=== PATIENT | male | born 1975 | race Caucasian/White ===

== ENCOUNTER → 2016-05-03 | Outpatient (CLI) | payer BC ==
[~2016-05-03] MED LIST: OXYC-57 PO
--- NOTE | 2016-05-03 14:52 | DIAGNOSTIC IMAGING REPORT ---
ULTRASOUND KIDNEYS AND BLADDER CLINICAL HISTORY: Urinary frequency. COMPARISON STUDY: No priors. TECHNIQUE: Real-time, grayscale, and color flow sonography of the kidneys and bladder is performed. Images are reviewed in the transverse and longitudinal planes. FINDINGS: Kidneys: The kidneys are normal in size and echotexture. The right kidney measures 12.3 x 5.5 I 7.2 cm and the left kidney measures 12.5 x 5.4 x 5.8 cm. There is no hydronephrosis. No shadowing renal calculi are identified. Small bilateral renal cysts measure up to 2.4 cm. There is no sonographic evidence of solid mass lesion. No perinephric fluid is identified. Bladder: The bladder is normal in appearance. Bilateral ureteral jets were seen. The post void residual volume measures 20 cc. Upper abdomen: The spleen is enlarged measuring 16.0 cm in length. IMPRESSION: 1. The kidneys are normal in size and without hydronephrosis. 2. Bilateral renal cysts measure up to 2.4 cm. 3. Splenomegaly. 4. The bladder is normal as visualized. The postvoid residual volume measures 20 cc. Electronically signed by: Cirilo Cano M.D. 05/03/2016 2:51 PM Dictated Date/Time: 05/03/2016 2:49 PM
== END | disposition home or self-care (01) ==
LOC: C.ULTR 13:54
PROVIDERS: ATTEND Family Medicine
DX: R35.0 Frequency of micturition (principal)

== ENCOUNTER → 2016-06-15 | Day surgery (SDC) | payer BC ==
[2016-06-01 14:56] VITALS: Ht 180.3 cm; Wt 98.2 kg
[~2016-06-15] VITALS: Ht 180.3 cm; Wt 98.2 kg
[~2016-06-15] MED LIST changes: +ATROPINE SULFATE 0.1 MG/ML 5ML SYR IV PRN; +BACITRACIN 50000 UNIT VIAL ONE; +BUPIVACAINE 0.5 % 5 MG/1 ML MPF 30ML VIAL ONE; +CEFAZOLIN SOD 1 GM VIAL ONE; +DEXAMETHASONE SOD INJ 4 MG/ML VIAL ONE; +EpHEDrine SULFATE INJ 50 MG/ML AMP IV PRN; +FENTANYL CITRATE INJ 50 MCG/1 ML 2 ML VIAL IV PRN; +FENTANYL CITRATE INJ 50 MCG/1 ML 2 ML VIAL ONE; +LACTATED RINGER'S 1000ML 1,000 ML IV SCH; +LIDOCAINE HCL 2% 2 ML VIAL (20MG/ML) ONE; +MIDAZOLAM HCL 1 MG/ML 2ML VIAL ONE; +MoRPHine SULFATE 2 MG/ML CARP IV PRN; +ONDANSETRON INJ 2 MG/ML 2 ML VIAL IV PRN; +ONDANSETRON INJ 2 MG/ML 2 ML VIAL ONE; +OXYCODONE/ACETAMINOPHEN 5-325 TAB PO PRN; +PROPOFOL IV EMULSION 10 MG/ML 20 ML VIAL IV ONE; +SODIUM CHLORIDE 0.9% INJ 10 ML VIAL ONE
--- NOTE | 2016-06-15 06:37 | History and Physical: Surg Cnt ---
History & Physical Date Jun 15, 2016. History of Present Illness The patient is a 41 year old male with complaints ofenalarging symp right ing hernia Additional History Hepatic Disease: No Endocrine Disorder: No Kidney Disease: No Hypertension: No Heart Disease: No Bleeding Tendencies: No Infectious Diseases: No Other: worked up past myeloproliferative disease Allergies Coded Allergies: NO KNOWN DRUG ALLERGIES (Verified Allergy, Unknown, ., 06/15/16) Home Medications No Active Prescriptions or Reported Meds Physical Examination Skin: warm/dry, no rash Eyes: normal inspection, EOMI, sclerae normal ENT: normal ENT inspection, pharynx normal Head: normocephalic, atraumatic Neck: supple, no adenopathy, trachea midline Respiratory/Chest: lungs clear, normal breath sounds, no respiratory distress Cardiovascular: regular rate, rhythm, no edema, no murmur Abdomen / GI: normal bowel sounds, non tender Back: normal inspection Extremities: normal inspection, normal range of motion Genitourinary - Male: normal male genitalia (golf ball size reducible right ing hernia), normal testicles Neurologic/Psych: no motor/sensory deficits, alert, normal reflexes, oriented x 3 Diagnosis symp reducible right ing hernia Plan of Treatment symp right ing hernia open repair with possible mesh r and c explained to pt pt marked SO at bedside
--- NOTE | 2016-06-15 07:06 | Discharge Instructions ---
Discharge Instructions Date of Service Jun 15, 2016. Visit Reason for Visit: Right Inguinal Hernia Discharge Discharge Diagnosis / Problem: Ingunial hernia repair Discharge Goals Goal(s): Decrease discomfort Activity Recommendations Activity Limitations: as noted below Lifting Limitations: no more than 10 pounds Shower/Bathe: tomorrow Driving or Machine Use: in 5-7 days if not taking Percocet Anesthesia . Post Anesthesia Instructions: If you have had General Anesthesia or IV Sedation: * Do not drive today. * Resume driving when surgeon permits. * Do not make important decisions or sign legal documents today. * Call surgeon for: 1. Temperature elevations greater than 101 degrees F. 2. Uncontrollable pain. 3. Excessive bleeding. 4. Persistent nausea and vomiting. 5. Medication intolerance (nausea, vomiting or rash). * For nausea and vomiting use only clear liquids such as: tea, soda, bouillon until nausea subsides, then gradually increase diet as tolerated. * If you have any concerns or questions, call your surgeon's office. If physician is unavailable and it is an emergency, call 911 or go to the nearest emergency room. . Instructions / Follow-Up Instructions / Follow-Up Dr. Mccurdy in 1 week, call [phone] if you do not already have an appt Ice groin (incision) off and on alternating every 20 minutes until bedtime Diet Recommendations Recommended Home Diet: no limitations Pending Studies Studies pending at discharge: no Medical Emergencies . Who to Call and When: Medical Emergencies: If at any time you feel your situation is an emergency, please call 911 immediately. . Non-Emergent Contact Non-Emergency issues call your: Surgeon Call Non-Emergent contact if: you have a fever, temperature is above 101.5, your pain is not controlled, wound has increased redness . . "Provider Documentation" section prepared by Jeyson Foote.
--- NOTE | 2016-06-15 08:13 | [facility] Post Operative Brief Note ---
Immediate Operative Summary Operative Date Jun 15, 2016. Pre-Operative Diagnosis Right Inguinal Hernia Post-Operative Diagnosis Direct and Indirect Right Inguinal Hernia, Lipoma of Cord Procedure(s) Performed Right Inguinal Open Hernia Repair With Mesh and excision lipoma cord Surgeon Dr. Mccurdy Chemical Processing Supervisor Surgeon(s) Florencia Foote PA-C Estimated Blood Loss 3 mL Specimens A. Lipoma of Cord
--- NOTE | 2016-06-15 08:25 | Anesthesia Progress Nt - [facility] ---
Anesthesia Post Op Note Date & Time Jun 15, 2016 at 08:25 Vital Signs Pain Intensity: 0 Vital Signs Past 12 Hours Date Time Temp Pulse Resp B/P Pulse Ox O2 Delivery O2 Flow Rate FiO2 06/15/16 06:39 36.5 52 16 140/78 96 Room Air Notes Mental Status: alert / awake / arousable, participated in evaluation Pt Amnestic to Procedure: Yes Nausea / Vomiting: adequately controlled Pain: adequately controlled Airway Patency, RR, SpO2: stable & adequate BP & HR: stable & adequate Hydration State: stable & adequate Anesthetic Complications: no major complications apparent
--- NOTE | 2016-06-15 08:31 | Medical Student: [facility] ---
Immediate Operative Summary Operative Date Jun 15, 2016. Pre-Operative Diagnosis Right inguinal hernia Post-Operative Diagnosis Right direct and indirect inguinal hernias and cord lipoma Procedure(s) Performed Open repair of right inguinal hernia with mesh and cord lipoma excision Surgeon Dr. Martin Mccurdy Washer And Capper Machine Operator Surgeon(s) Jeyson Foote PA-C Estimated Blood Loss 3 cc Findings Direct and indirect inguinal hernias and cord lipoma Fluids (cc crystalloids) 1200 cc Specimens 1. Cord lipoma Drains None Anesthesia GETA Complication(s) None Disposition Recovery Room / PACU (In stable condition)
--- NOTE | 2016-06-15 08:35 | OPERATIVE REPORT ---
DATE OF OPERATION: 06/15/2016 PREOPERATIVE DIAGNOSIS: Symptomatic right inguinal hernia. POSTOPERATIVE DIAGNOSIS: Right direct and indirect (pantaloon hernia and lipoma of the cord). PROCEDURE: Open repair of right inguinal hernia with Marlex mesh reinforcement tension free and excision lipoma of the cord. SURGEON: Dr. Mccurdy. REGIONAL OFFICE COORDINATOR: Geo Foote PA-C. OPERATION AND FINDINGS: SUMMARY: The patient was brought into the operating room under LMA anesthesia. Right lower quadrant was prepped with Betadine scrubbing solution and properly draped. Systemic antibiotics had been given. Time out was had. Marcaine 0.5% without epinephrine used preemptive local analgesia 2 fingerbreadths medial and anterior superior iliac crest to inject underneath the external oblique. An incision was made parallel to the inguinal ligament and deepened through subcutaneous tissue onto the external oblique. The external oblique was then opened along the course of its fibers to the external ring. Some subcutaneous vessels were ligated with 2-0 silk. Once we were able then to the external ring there was some incarcerated tissue, we elevated the tissue on the Brandon drain and identified that the patient has significant direct weakness. We dissected some cremasteric fibers to further delineate the extent of it and actually identified that the inferior epigastric vessels were pulled over down. We ligated the vein out of the way and identified that this was a pantaloon hernia. The patient also had a large lipoma of the cord that we freed from the cord structures, ligating at its base with 2-0 silk resecting it. We used 3-0 silk suture interrupted to approximate the free fibers of the transversalis fascia to return the prominence of the direct hernia into the retroperitoneal area. The whole floor was pretty much a hernia extending into the canal, probably about 6-8 cm or more. We also reconstructed the internal ring, avoiding the nerve which we had placed underneath the hemostat superiorly. A sheet of Marlex mesh was then brought onto the field and sutured onto the symphysis pubis, shelving portion of the inguinal ligament, around the internal ring to reconstruct it could only accommodate the tip of a hemostat. The nerve had been placed along the cord and was free of any entrapment. The internal ring could only accommodate the tip of a hemostat. The mesh was well beyond the internal ring, probably about 2-3 cm. It was subfascially to the external oblique. We then closed the external oblique on top of the mesh and the cord with interrupted 3-0 silk suture, 3-0 Dexon was used subcutaneously after more local anesthetic was used along the conjoined tendon superiorly and also in bed of the operative field 3-0 Dexon subcutaneously, kris for skin edges. Dressing was applied. The procedure was tolerated well by the patient. Estimated blood loss approximately 3 mL. The patient was taken to recovery room in good condition. I attest to the content of the Intraoperative Record and any orders documented therein. Any exceptio ns are noted below.
[2016-06-15 09:01] VITALS: BP 122/82; PULSE 56; TEMP 36.3; O2SAT 94
== END | disposition home or self-care (01) ==
LOC: X.SURG 06:09
PROVIDERS: ATTEND Surgery
DX: K40.90 Unilateral inguinal hernia, without obstruction or gangrene, not specified as recurrent (principal); D17.6 Benign lipomatous neoplasm of spermatic cord

== ENCOUNTER → 2016-08-29 | Outpatient (CLI) | payer BC ==
[~2016-08-29] MED LIST changes: -ATROPINE SULFATE 0.1 MG/ML 5ML SYR IV PRN; -BACITRACIN 50000 UNIT VIAL ONE; -BUPIVACAINE 0.5 % 5 MG/1 ML MPF 30ML VIAL ONE; -CEFAZOLIN SOD 1 GM VIAL ONE; -DEXAMETHASONE SOD INJ 4 MG/ML VIAL ONE; -EpHEDrine SULFATE INJ 50 MG/ML AMP IV PRN; -FENTANYL CITRATE INJ 50 MCG/1 ML 2 ML VIAL IV PRN; -FENTANYL CITRATE INJ 50 MCG/1 ML 2 ML VIAL ONE; -LACTATED RINGER'S 1000ML 1,000 ML IV SCH; -LIDOCAINE HCL 2% 2 ML VIAL (20MG/ML) ONE; -MIDAZOLAM HCL 1 MG/ML 2ML VIAL ONE; -MoRPHine SULFATE 2 MG/ML CARP IV PRN; -ONDANSETRON INJ 2 MG/ML 2 ML VIAL IV PRN; -ONDANSETRON INJ 2 MG/ML 2 ML VIAL ONE; -OXYCODONE/ACETAMINOPHEN 5-325 TAB PO PRN; -PROPOFOL IV EMULSION 10 MG/ML 20 ML VIAL IV ONE; -SODIUM CHLORIDE 0.9% INJ 10 ML VIAL ONE
== END | disposition home or self-care (01) ==
LOC: C.PATHSPEC 17:20
PROVIDERS: ATTEND Urology
DX: Z30.2 Encounter for sterilization (principal)

== ENCOUNTER 2017-03-05 06:44 | Emergency (ER) | payer BC ==
[~2017-03-05] VITALS: Ht 180.3 cm; Wt 98.0 kg
[2017-03-05 06:48] VITALS: BP 140/97; TEMP 36.5; Ht 180.3 cm; Wt 98.0 kg
[2017-03-05] MEDS ORDERED: IBUPROFEN 600 MG TAB PO STA (06:55)
--- NOTE | 2017-03-05 07:56 | DIAGNOSTIC IMAGING REPORT ---
R ANKLE MIN 3 VIEWS ROUTINE HISTORY: 42 years-old Male fall/ ankle pain acute right ankle pain status post fall COMPARISON: None available TECHNIQUE: 3 views of the right ankle FINDINGS: There is marked anterolateral soft tissue swelling about the ankle. Ankle joint effusion is suspected. Corticated bone fragments are seen inferior to the medial malleolus measuring up to 4 mm suggesting remote fracture fragments or accessory ossicles. There is no acute fracture, dislocation or osteochondral defect. There are only minimal degenerative changes about the midfoot. No opaque foreign body. IMPRESSION: 1. Marked anterolateral soft tissue swelling about the ankle without acute fracture or dislocation identified. 2. Subcentimeter corticated bone fragments adjacent to the medial malleolus suggests remote fracture fragments and/or accessory ossicles. The above report was generated using voice recognition software. It may contain grammatical, syntax or spelling errors. Electronically signed by: Manjit Kay M.D. 03/05/2017 7:54 AM Dictated Date/Time: 03/05/2017 7:52 AM
--- NOTE | 2017-03-05 08:07 | EMERGENCY ROOM VISIT NOTE ---
ED Visit Note First contact with patient: 06:51 CHIEF COMPLAINT: Right Ankle injury HISTORY OF PRESENT ILLNESS: This 42-year-old male presents the ER with chief complaint of right ankle pain and swelling and left hand abrasions. The patient states that he was walking to work this morning and tripped on the curb and fell injuring his right ankle and left hand. The patient states that he walked an additional 2 miles after the injury occurred. He states it was very painful. The patient denies any numbness and tingling in his toes. The patient denies any knee or hip pain. The patient denies any prior fracture to his right ankle. The patient also states that he has multiple abrasions on his left hand but denies any difficulty moving his fingers or wrist. REVIEW OF SYSTEMS: 6 system review was performed and was negative unless stated otherwise in history of present illness. PMH: No prior significant ankle injury. Hernia repair SOCIAL HISTORY: Patient is a [employer] professor. The patient denies tobacco use but admits to occasional alcohol use. PHYSICAL EXAM: Vital Signs: Were reviewed Reviewed Nurse's notes. GENERAL: 42- year-old male appears in no acute distress. MENTAL STATUS: Alert, oriented, and cooperative. RIGHT ANKLE: The ankle is swollen and tender over the lateral aspect but the skin is intact and there is no ligamentous instability. The patient also has tenderness palpation over both the medial and lateral aspect of the ankle. There is no gross bony deformity. The foot and toes are warm and well-perfused. Sensation to pain and light touch is intact. LEFT HAND: No gross bony deformity noted. Superficial abrasions noted over the dorsal aspect of the hand. Patient is able to move her fingers without difficulty. Full range of motion of the ankle. EMERGENCY DEPARTMENT COURSE: The patient was evaluated. The patient was given Motrin 600 mg by mouth for pain. He was offered something stronger but declined. X-ray of the right ankle was ordered and interpreted by the radiologist and myself. DIAGNOSTICS:R ANKLE MIN 3 VIEWS ROUTINE HISTORY: 42 years-old Male fall/ ankle pain acute right ankle pain status post fall COMPARISON: None available TECHNIQUE: 3 views of the right ankle FINDINGS: There is marked anterolateral soft tissue swelling about the ankle. Ankle joint effusion is suspected. Corticated bone fragments are seen inferior to the medial malleolus measuring up to 4 mm suggesting remote fracture fragments or accessory ossicles. There is no acute fracture, dislocation or osteochondral defect. There are only minimal degenerative changes about the midfoot. No opaque foreign body. IMPRESSION: 1. Marked anterolateral soft tissue swelling about the ankle without acute fracture or dislocation identified. 2. Subcentimeter corticated bone fragments adjacent to the medial malleolus suggests remote fracture fragments and/or accessory ossicles. The above report was generated using voice recognition software. It may contain grammatical, syntax or spelling errors. Electronically signed by: Manjit Kay M.D. 03/05/2017 7:54 AM Dictated Date/Time: 03/05/2017 7:52 AM The patient was informed of the findings. The patient was placed in a gel splint and crutches. DIAGNOSIS: Sprained right Ankle with possible fracture fragments. DISCHARGE INSTRUCTIONS: Ice and elevation over the next 24 hours. Ibuprofen, 600 mg every 6 hours if needed for pain. Use crutches and wear gel splint until evaluated by orthopedics. Call Dr. Dawkins today for follow-up appointment. Current/Historical Medications No Active Prescriptions or Reported Meds Allergies Coded Allergies: NO KNOWN DRUG ALLERGIES (Verified Allergy, Unknown, ., 03/05/17) Vital Signs Date Time Temp Pulse Resp B/P (MAP) Pulse Ox O2 Delivery O2 Flow Rate FiO2 03/05/17 06:48 36.5 65 18 140/97 96 Room Air Medications Administered Medications (Trade) Dose Ordered Sig/Marquez Route Start Time Stop Time Status Last Admin Dose Admin Ibuprofen (Motrin Tab) 600 mg NOW STAT PO 03/05/17 06:55 03/05/17 06:56 DC 03/05/17 07:13 600 MG Departure Information Prescriptions No Active Prescriptions or Reported Meds Referrals Nkechi To MD (PCP) Patient Instructions My [facility]
[2017-03-05 08:29] VITALS: PULSE 65; O2SAT 96
== END 2017-03-05 08:30 | disposition home or self-care (01) ==
LOC: C.EDB 06:45
DX: S93.401A Sprain of unspecified ligament of right ankle, initial encounter (principal); W01.0XXA Fall on same level from slipping, tripping and stumbling without subsequent striking against object, initial encounter; S60.512A Abrasion of left hand, initial encounter

== ENCOUNTER → 2017-05-20 | Outpatient (CLI) | payer OTHER ==
--- NOTE | 2017-05-21 05:47 | PAP/PSG TECHNICIAN REPORT ---
[facility] Therapeutic Recreation Assistant Polysomnogram Report Study name: None Report date: 05/21/2017 Study date: 05/20/2017 Referring Physician: Dr. Liu Name: JOSESITO PALOMINO Interpreting Physician: Adiel Orourke M.D. Date of : 1975 Therapeutic Recreation Assistant: Bradford Lopez RPSGT. Sex: Male Age: 42 StudyType: PSG Weight: 220 lbs Height: 42 years, Height 5' 11" BMI: 30.68 Medications: NONE LISTED Patient History HE HAS HISTORY OF SNORING AND DAYTIME SLEEPINESS. ALSO HAS HISTORY OF POLYCYTHEMIA. HE IS HERE TODAY FOR AN EVALUATION FOR JAY. ESS = 8 RM 5 Parameters Monitored NPSG: E1-M2, E2-M1, Fp1-M2, Fp2-M1, F3-M2, F4-M2, F4-M1, C3-M2, C4-M2, C4-M1, O1-M2, O2-M2, O2-M1, T3-M2, T4-M1, P3-M2, P4-M1, CHIN1, CHIN2, HR, EKG, Legs, PFLOW, SNOR, FLOW, CFLOW, Tidal Volume, THOR, ABDO, SpO2, PLTH, CPRESS, ETCO2 Wave, ETCO2, pH Sleep Architecture Sleep Stages Time at Lights Off 9:43:29 PM STAGES Time (min.) TST (%) Time at Lights On 5:25:29 AM Wake 103.5 -- Total Recording Time (TRT) 462.50 min. N1 9.0 3 Total Sleep Period (TSP) 445.0 min. N2 233.0 65 Total Sleep Time (TST) 358.5min. N3 71.0 20 Awake Time 103.5 min. REM 45.5 13 Wake after Sleep Onset 86.5 min. Sleep Efficiency (SE) 78 % Sleep Onset Latency (TIMA) 17.0 min. Number of Stage 1 Shifts None Awakenings 12 Stage Changes 55 Number of REM periods 8 REM 45.5 13 REM Latency 139.5 min. NREM 313.0 87 Body Position Analysis Supine Right Left Side Prone Vertical Total Sleep Time (min.) 58.2 100.2 217.0 317.24 0.0 0.0 Total Sleep Time (%) 12% 28% 61% 88 0% N/A% Total Sleep Time REM (min.) 5.0 11.5 29.0 None 0.0 0.0 Total Sleep Time NREM (min.) 36.3 88.7 188.0 None 0.0 0.0 Intermittent Wake (min.) 17.0 9.4 77.1 None 0.0 0.0 Total Sleep Period (%) 10% None None None None None Arousals Myoclonus (PLM) * Events Count Index Events Count Index Spontaneous 27 5 Events Awake (PLMW) 167 96.8 Respiratory 0 0.0 Events Asleep w/ Arousal (PLMA) 15 2.5 PLM 14 3 Events Asleep w/o Arousal (PLMS) 204 34.1 Snoring 1 0 Total Asleep 219 36.7 Total 42 7 Total 386 50 Respiratory Analysis * CA OA MA CH H RERA Total Count 0 0 0 0 8 0 8 Index 0.0 0.0 0.0 0 1.3 0 1.3 Mean Duration 0.0 0.0 0.0 0.00 17.4 0.0 17.4 Longest Duration 0.0 0.0 0.0 0.00 0.0 0.0 21.5 Respiratory Event Summary Total Supine ~Supine Right Left Prone REM NREM Apneas Count 0 0 0 0 0 N/A 0 0 Index 0.0 0 0 0.0 0.0 N/A 0 0 Hypopneas (4% Desat) Count 8 5 3 0 3 N/A 3 5 Index 1.3 7.3 1 0.0 0.8 N/A 4.0 1.0 Apneas & All Hypopneas Count 8 5 3 0 3 N/A 3 5 Index 1.3 7 1 0 1 N/A 4.0 1.0 Respiratory Events ([employer]+All Hyp+RERA) Count 8 5 3 0 3 N/A 3 5 Index 1.3 7 1 0.0 0.8 N/A 4.0 1.0 Respiratory Related Arousal Count 0 5 0 0 0 N/A 0 0 Index 0.0 0 0 0 0 N/A 0 0 Snoring Analysis Supine Right Left Prone REM NREM Total Snore duration 2.5 min Snores count 23 46 63 N/A 7 125 132 Snore mean duration 1.1 Sec Snores index 33 28 17 N/A 9.2 24.0 22.1 TST with snoring (%) 0.7% Desaturation Event Summary: Minimum %SpO2 Event Count Mean/Min/Max Duration(sec.) Desaturation Index % Time In Bed > 90 17 26.0 / 7.8 / 54.5 3.7 60.1 86 - 90 3 13.0 / 7.8 / 18.0 1.0 39.9 81 - 85 0 N/A 0.0 0.0 76 - 80 0 N/A 0.0 0.0 71 - 75 0 N/A 0.0 0.0 66 - 70 0 N/A 0.0 0.0 61 - 65 0 N/A 0.0 0.0 56 - 60 0 N/A 0.0 0.0 51 - 55 0 N/A 0.0 0.0 < 50 0 N/A 0.0 0.0 Total REM NREM Awake <50% 0.0 min. 0.0 min. 0.0 min. 0.0 min. 51 - 60% 0.0 min. 0.0 min. 0.0 min. 0.0 min. 61 - 70% 0.0 min. 0.0 min. 0.0 min. 0.0 min. 71 - 80% 0.0 min. 0.0 min. 0.0 min. 0.0 min. 81 - 90% 182.2 min. 17.5 min. 138.9 min. 25.9 min. 91 - 100% 274.9 min. 28.0 min. 174.0 min. 72.9 min. Average 91 91 91 91 Minimum SpO2 86 86 88 87 Desaturation Event Index 2.2 4.0 1.0 5.2 # Desat. Events below 89% 9 2 3 4 Time(%) with Saturation below 89% 2.0 0.9 0.8 0.2 Time(min.) with Saturation below 89% 9.0 4.2 3.7 1.1 Time (mins) REM (mins) NREM (mins) % of TST SpO2 Below 90% 8 3 N5 17.8 SpO2 Below 88% 2 0 0 0 Heart Rate Analysis Min (bpm) Max (bpm) Average (bpm) Awake 48 84 57 NREM 43 93 53 REM 44 127 52 Overall 43 127 53 Supplemental O2 Values Minimum O2 level: None Value Start Time End Time Therapeutic Recreation Assistant Comments Mr. Palomino slept in the right, left and supine positions. PVC's noted. Leg movements noted. No bruxism noted. Snoring was noted and scored as a 2 on a scale of 1 through 5. (0=no snoring, 5=snoring loud enough to be heard through a closed door or down the madrigal way) Mr. Palomino awoke to use the restroom 1 time during the night. Mr. Palomino stated I slept as well as I do when I am in my own bed. The final report will be interpreted and signed by a sleep physician. The completed physician report will then be placed in the patient medical record. Therapy (cm H2O) 0 TIB (min.) 462.0 TST (min.) 358.5 Sleep Onset (min.) 17.0 REM Onset From Sleep (min.) 139.5 Sleep Efficiency % 78 Wakefulness (%) 22 Wakefulness (min.) 103.5 NREM 1 (%) 3 NREM 1 (min.) 9.0 NREM 2 (%) 65 NREM 2 (min.) 233.0 NREM 3 (%) 20 NREM 3 (min.) 71.0 REM (%) 13 REM (min.) 45.5 # Arousals 42 Arousal Index 7 # Snore 132 Snore Index 22.1 AHI 1.3 AHI Supine 7 AHI Non-Supine 1 NREM AHI 1.0 REM AHI 4.0 RDI 1.3 # Obstructive Apnea 0 # Central Apnea 0 # Mixed Apnea 0 # Hypopneas 8 RERAs 0 Total Respiratory Events 10 Time Below SpO2 89% (min.) 7.9 Mean NREM SpO2 (%) 91 Mean REM SpO2 (%) 91 Mean Sleep SpO2 (%) 91 Min NREM SpO2 (%) 88 Min REM SpO2 (%) 86 Position Supine (min.) 58.2 Position Non-supine (min.) 317.2 LM Index Sleep 36.7 LM Index NREM 39.7 LM Index REM 15.8 Mean Heart Rate (bpm) 53 Min Heart Rate (bpm) 43
--- NOTE | 2017-05-21 16:33 | POLYSOMNOGRAPH REPORT ---
CLINICAL DATA: A 42-year-old male with a BMI of 30.[address] Liu with snoring, daytime sleepiness, and polycythemia. His [place] sleepiness score was 8/24. SLEEP ARCHITECTURE: Total sleep period was 445 minutes. Total sleep time was 358.5 minutes divided between 313 minutes of non-REM sleep and 45.5 minutes of REM sleep. Sleep onset latency was 17 minutes. REM latency was 139.5 minutes. Sleep efficiency was 78%. Wake after sleep onset was 86.5 minutes. Sleep consisted of stage N1 3%, stage N2 65%, stage N3 20%, and REM 13%. AROUSAL DATA: Forty two arousals were recorded for an index of 7 per hour. PERIODIC LIMB MOVEMENT DATA: Moderately elevated limb movements during sleep were noted. There were 290 limb movements during sleep noted for an index of 36.7 per hour with arousal index arousals 2.5 per hour. RESPIRATORY DATA: There was no evidence of clinically significant sleep apnea/hypopnea seen. The AHI was 1.3. There were 8 hypopneic episodes with mean duration of 17.4 seconds. OXIMETRY DATA: Very transient nocturnal hypoxemia was seen. Oxygen merary was 86% during REM. The mean saturation was 91%. Time below 88% was 2 minutes. ECHOCARDIOGRAM: Heart rates ranged from 43-127 beats per minute. PVCs were noted. LASTING ROOM SUPERVISOR'S COMMENTS: The patient slept in the right, left, and supine positions. Snoring was mild, rated 2 on a scale of 1-5. IMPRESSION: No evidence of clinically significant sleep apnea/hypopnea or sustained nocturnal hypoxemia to explain this patient's symptoms. He did have frequent leg movements during sleep without frequent arousal. RECOMMENDATIONS: The patient should continue to practice good sleep hygiene. There is nothing to suggest the need for either CPAP or oxygen baseline sleep study. [facility]
== END | disposition home or self-care (01) ==
LOC: C.NEUR 21:00
PROVIDERS: ATTEND Internal Medicine Hematology & Oncology
DX: D75.1 Secondary polycythemia (principal); R06.83 Snoring